=== PATIENT | male | born 1975 | race African-American/Black ===

== ENCOUNTER 2017-04-20 04:09 | Emergency (ER) | payer SELFPAY, OTHER | END 2017-04-20 09:31 | disposition home or self-care (01) | LOC: FTE 04:09 | DX: M54.5 Low back pain (principal); R51 Headache; I10 Essential (primary) hypertension; F17.210 Nicotine dependence, cigarettes, uncomplicated | CPT/HCPCS: 70450; 72100; 72125; 72128; 72131; 99285-25 ==